=== PATIENT | female | born 1970 | race Caucasian/White ===

== ENCOUNTER → 2018-04-22 | Outpatient (CLI) | payer OTHER ==
--- NOTE | 2018-04-22 10:40 | XR ---
EXAMINATION TYPE: XR soft tissue neck DATE OF EXAM: 04/22/2018 COMPARISON: NONE HISTORY: Pain TECHNIQUE: 2 views are submitted FINDINGS: Hypertrophic spurring C5-C6 with degenerative disc disease and loss of cervical lordosis. E piglottis normal. Mild prominence of the lingular tonsils. Prevertebral soft tissue structures within normal limits. Lung apices clear. IMPRESSION: 1. Mild prominence of the lingular tonsils. 2. Degenerative disc disease.
== END | disposition home or self-care (01) ==
LOC: RADXRYALE 10:21
PROVIDERS: ATTEND Nurse Practitioner Family
DX: J02.9 Acute pharyngitis, unspecified (principal)
CPT/HCPCS: 70360